=== PATIENT | female | born 2000 | race African-American/Black ===

== ENCOUNTER 2018-06-22 14:33 | Emergency (ER) | payer SELFPAY ==
[2018-06-22] MEDS ORDERED: METHYLPREDNISOLONE INJ 125 MG/2 ML SDV IV ONE (15:01)
[2018-06-22] MEDS ORDERED: MAGNESIUM SULFATE/D5W 1 GM/100 ML RTUPB IV ONE ×2 (15:01→15:02)
[2018-06-22] MEDS ORDERED: IPRATROPIUM/ALBUTEROL 0.5-2.5 MG/3 ML AMPUL NEB ONE ×2 (15:01→19:13)
--- NOTE | 2018-06-22 15:03 | ER Document Report ---
ED Medical Screen (RME) - General Chief Complaint: Shortness Of Breath Stated Complaint: SHORT OF BREATH Time Seen by Provider: 06/22/18 15:01 Primary Care Provider: CHANELLE PHILLIPS MD [Primary Care Provider] - Follow up as needed TRAVEL OUTSIDE OF THE [place] IN LAST 30 DAYS: No - HPI Notes: 06/22/18 15:02 Patient is a 17-year-old female with a history of asthma who presents to the emergency department complaining of nasal congestion/discharge and a dry cough over the past week with wheezing and shortness of breath. Patient states that she has been using her nebulizer at home with minimal relief. She is otherwise able to eat and drink without difficulty. Denies MARIEE, fever, neck pain, URI, CP, n/v/d, or rash. I have treated and performed a rapid initial assessment of this patient. A comprehensive ED assessment and evaluation of the patient, analysis of test results and completion of medical decision making process will be conducted by additional ED providers. PHYSICAL EXAMINATION: GENERAL: Well-appearing, well-nourished and in no acute distress. A&Ox4. Answers questions appropriately. LUNGS: Wheezing bilaterally. No retractions. HEART: Regular rate and rhythm without murmurs, rubs, gallops. - Related Data Allergies/Adverse Reactions: No Known Allergies Allergy (Unverified 06/22/18 14:35) Physical Exam - Vital signs Vitals: Temp Pulse Resp BP Pulse Ox 98.6 F 102 H 20 145/99 H 98 06/22/18 14:41 06/22/18 14:41 06/22/18 14:41 06/22/18 14:41 06/22/18 14:41 Course - Vital Signs Vital signs: Temp Pulse Resp BP Pulse Ox 98.6 F 102 H 20 145/99 H 98 06/22/18 14:41 06/22/18 14:41 06/22/18 14:41 06/22/18 14:41 06/22/18 14:41 Doctor's Discharge - Discharge Referrals: CHANELLE PHILLIPS MD [Primary Care Provider] - Follow up as needed
--- NOTE | 2018-06-22 15:47 | RADIOLOGY REPORT (SQ) ---
EXAM DESCRIPTION: CHEST 2 VIEWS COMPLETED DATE/TIME: 06/22/2018 3:31 pm REASON FOR STUDY: cough/wheeze COMPARISON: None. TECHNIQUE: Frontal and lateral radiographic views of the chest acquired. NUMBER OF VIEWS: Two view. LIMITATIONS: None. FINDINGS: LUNGS AND PLEURA: No opacities, masses or pneumothorax. No pleural effusion. MEDIASTINUM AND HILAR STRUCTURES: No masses or contour abnormalities. HEART AND VASCULAR STRUCTURES: Heart normal size. No evidence for failure. BONES: No acute findings. HARDWARE: None in the chest. OTHER: No other significant finding. IMPRESSION: NO SIGNIFICANT RADIOGRAPHIC FINDING IN THE CHEST. TECHNICAL DOCUMENTATION: JOB ID: [id number] [employer]- All Rights Reserved Reading location - IP/workstation name: [email or web address]
[2018-06-22 16:43] LABS: ALANINE AMINOTRANSFERASE 26 U/L (5-35); ALBUMIN 4.1 g/dL (3.7-5.6); ALKALINE PHOSPHATASE 66 U/L (50-135); ANION GAP 6 (5-19); ASPARTATE AMINO TRANSFERASE 32 U/L (5-30); BILIRUBIN,DIRECT 0.2 mg/dL (0.0-0.4); BILIRUBIN,TOTAL 0.3 mg/dL (0.2-1.3); BLOOD UREA NITROGEN 9 mg/dL (7-20); CALCIUM 9.4 mg/dL (8.4-10.2); CARBON DIOXIDE 31 mmol/L (22-30); CHLORIDE 103 mmol/L (98-107); GLUCOSE 84 mg/dL (75-110); POTASSIUM 4.3 mmol/L (3.6-5.0); SODIUM 139.9 mmol/L (137-145); TOTAL PROTEIN 8.3 g/dL (6.3-8.2)
[2018-06-22 18:20] LABS: VENOUS BLOOD BASE EXCESS 8.7 mmol/L; VENOUS BLOOD HCO3 34.7 mmol/L (20-32); VENOUS BLOOD PCO2 57.1 mmHg (35-63); VENOUS BLOOD PH 7.4 (7.30-7.42)
[2018-06-22 18:21] LABS: HEMATOCRIT 26.8 % (36.0-47.0); MEAN CORPUSCULAR HEMOGLOBIN 15.6 pg (27.0-33.4); MEAN CORPUSCULAR HGB CONC 28.1 g/dL (32.0-36.0); PLATELET COUNT 442 10^3/uL (150-450); RED BLOOD COUNT 4.82 10^6/uL (3.72-5.28); RED CELL DISTRIBUTION WIDTH 21.8 % (11.5-14.0); WHITE BLOOD COUNT 7.1 10^3/uL (4.0-10.5)
[2018-06-22 18:54] LABS: MEAN CORPUSCULAR VOLUME 56 fl (80-97)
[2018-06-22 18:57] LABS: HEMOGLOBIN 7.5 g/dL (12.0-15.5)
[2018-06-22 19:05] LABS: ABSOLUTE MONOCYTES # (MANUAL) 0.1 10^3/uL (0.1-1.4); ABSOLUTE NEUTROPHILS# (MANUAL) 5.7 10^3/uL (1.7-8.2); BASOPHILS % (MANUAL) 0 % (0-2); EOSINOPHILS % (MANUAL) 4 % (0-6); LYMPHOCYTES % (MANUAL) 14 % (13-45); MONOCYTES % (MANUAL) 2 % (3-13); SEGMENTED NEUTROPHILS % (MAN) 80 % (42-78); TOTAL CELLS COUNTED 100
[2018-06-22 19:07] LABS: ANISOCYTOSIS 3+; HYPOCHROMASIA 4+; OVALOCYTES 2+; PLATELET CLUMPS PRESENT; PLATELET COMMENT ADEQUATE; POIKILOCYTOSIS 2+; POLYCHROMASIA SLIGHT; TOXIC GRANULATION SLIGHT; TOXIC VACUOLATION PRESENT
[2018-06-22] MEDS ORDERED: BENZONATATE 100 MG CAPSULE PO ONE (19:14)
[2018-06-22] MEDS ORDERED: CETIRIZINE 10 MG TABLET PO ONE (19:14)
--- NOTE | 2018-06-22 19:14 | ER Document Report ---
ED General - General TRAVEL OUTSIDE OF THE [place] IN LAST 30 DAYS: No <HENRIQUE YUAN - Last Filed: 06/22/18 22:27> <MIKHAIL GALLAGHER - Last Filed: 06/23/18 01:27> - General Chief Complaint: Shortness Of Breath Stated Complaint: SHORT OF BREATH Time Seen by Provider: 06/22/18 15:01 Primary Care Provider: CHANELLE PHILLIPS MD [CONSULTING STAFF] - Follow up as needed Notes: She is a 17-year-old female who presents to the emergency department with the chief complaint of shortness of breath, wheezing, body aches, congestion, sore throat, and chills. She has a history of asthma. She states that she feels she is having her normal asthma attack. She has had her symptoms for the past week. She has not taken any medication to help with her symptoms. (HENRIQUE YUAN) - Related Data Allergies/Adverse Reactions: No Known Allergies Allergy (Unverified 06/22/18 14:35) Past Medical History - Social History Smoking Status: Current Every Day Smoker Chew tobacco use (# tins/day): No Frequency of alcohol use: Social Drug Abuse: None Family History: Reviewed & Not Pertinent Patient has suicidal ideation: No Patient has homicidal ideation: No Pulmonary Medical History: Reports: Hx Asthma Renal/ Medical History: Denies: Hx Peritoneal Dialysis <HENRIQUE YUAN - Last Filed: 06/22/18 22:27> Review of Systems <HENRIQUE YUAN - Last Filed: 06/22/18 22:27> - Review of Systems Notes: REVIEW OF SYSTEMS: CONSTITUTIONAL : See HPI EENT: See HPI CARDIOVASCULAR: Denies chest pain. RESPIRATORY: See HPI GASTROINTESTINAL: Denies nausea, vomiting, and diarrhea. Denies abdominal pain. Denies constipation. GENITOURINARY: Denies difficulty urinating, burning, blood in urine, urgency or frequency. MUSCULOSKELETAL: Denies neck and back pain. Denies joint pain or swelling. SKIN: Denies rash, itchiness, or lesions HEMATOLOGIC : Denies easy bruising or bleeding. LYMPHATIC: Denies swollen, painful, enlarged glands. NEUROLOGICAL: Denies no numbness or tingling denies weakness. Denies headache. Denies altered mental status. Denies alteration in speech. PSYCHIATRIC: Denies stress, anxiety, alteration in sleep patterns, or depression. All other systems reviewed and negative. (HENRIQUE YUAN) Physical Exam <HENRIQUE YUAN - Last Filed: 06/22/18 22:27> - Vital signs Vitals: Temp Pulse Resp BP Pulse Ox 98.6 F 102 H 20 145/99 H 98 06/22/18 14:41 06/22/18 14:41 06/22/18 14:41 06/22/18 14:41 06/22/18 14:41 - Notes Notes: PHYSICAL EXAMINATION: GENERAL: Morbidly obese, no acute distress. HEAD: Normocephalic, atraumatic. EYES: PERRL, conjunctiva normal, all extraocular movements intact, sclera nonicteric ENT: Moist mucous membranes. Erythema and edema noted to nasal mucosa. NECK: Supple, no noticeable swelling, redness, rash. Normal range of motion. LUNGS: Equal breath sounds bilaterally and clear to auscultation. No wheezes rales or rhonchi. CARDIOVASCULAR: S1-S2, regular rate, regular rhythm. Radial pulses 2+, normal. ABDOMEN: Normoactive bowel sounds. Soft, nontender, no guarding, no rebound tenderness, and no masses palpated. EXTREMITIES: Normal strength and range of motion, no pitting or edema. No cyanosis. NEUROLOGICAL: Moves all extremities upon command. Strength 5/5 in all extremities. PSYCH: Normal mood, normal affect. SKIN: Warm, dry. No rash, lesions, ulcerations noted. Normal skin turgor. (HENRIQUE YUAN) Course - Laboratory Result Diagrams: 06/22/18 19:40 06/22/18 16:00 <HENRIQUE YUAN - Last Filed: 06/22/18 22:27> - Laboratory Result Diagrams: 06/22/18 19:40 06/22/18 16:00 <MIKHAIL GALLAGHER - Last Filed: 06/23/18 01:27> - Re-evaluation Re-evalutation: 06/22/18 19:24 She does have CVA tenderness noticed patient's hemoglobin is 7.5 and hematocrit is 26.8. I am worried that this may be an erroneous lab draw. Another CBC will be sent, along with a type and screen. Her blood gas shows is normal. Chemistries show are unremarkable. She will be given Zyrtec and Tessalon Perles to help with her symptoms. She will also receive another DuoNeb treatment. Patient also states that her doctor told her that she was low on iron. She was supposed to take iron medication [id number], but did not. 06/22/18 20:05 Bedside report was given to JOSÉ ANTONIO Fulton. He will take over care for the patient. (HENRIQUE YUAN) 06/23/18 01:00 Patient has completed the blood transfusion. On reevaluation her lungs are clear, she states she actually feels much better after her treatment and transfusion. Patient states that she has frequent and heavy menstrual cycles. This is most likely the cause of her anemia. She is not currently bleeding. Patient does not have any home albuterol or inhalers left, she will be given both along with prednisone. Provided with lab results, discussed follow-up recommendations and return precautions. Patient and family state understanding and agreement. Stable at time of discharge. (MIKHAIL GALLAGHER) - Vital Signs Vital signs: Temp Pulse Resp BP Pulse Ox 98.6 F 102 H 18 118/83 98 06/22/18 23:15 06/22/18 14:41 06/23/18 00:46 06/23/18 00:46 06/23/18 00:46 - Laboratory Laboratory results interpreted by me: 06/22/18 06/22/18 06/22/18 16:00 18:07 18:07 Hgb 7.5 L Hct 26.8 L MCV 56 L MCH 15.6 L MCHC 28.1 L RDW 21.8 H Plt Count Seg Neutrophils % Seg Neuts % (Manual) 80 H Lymphocytes % Monocytes % Monocytes % (Manual) 2 L VBG HCO3 34.7 H Carbon Dioxide 31 H Creatinine 0.41 L AST 32 H Total Protein 8.3 H Crossmatch 06/22/18 06/22/18 19:40 19:40 Hgb 7.6 L Hct 26.6 L MCV 56 L MCH 16.0 L MCHC 28.7 L RDW 21.6 H Plt Count 453 H Seg Neutrophils % 88.7 H Seg Neuts % (Manual) Lymphocytes % 8.9 L Monocytes % 1.8 L Monocytes % (Manual) VBG HCO3 Carbon Dioxide Creatinine AST Total Protein Crossmatch See Detail Discharge <HENRIQUE YUAN - Last Filed: 06/22/18 22:27> <MIKHAIL GALLAGHER - Last Filed: 06/23/18 01:27> - Discharge Clinical Impression: Anemia requiring transfusions Asthma exacerbation Qualifiers: Asthma severity: unspecified severity Asthma persistence: intermittent Qualified Code(s): J45.21 - Mild intermittent asthma with (acute) exacerbation Condition: Stable Disposition: HOME, SELF-CARE Additional Instructions: Use the albuterol inhaler, nebulizer, and prednisone as prescribed. Use the spacer with the inhaler, it is basically useless without it. The inhaler is basically used to this without it. Your transfused blood tonight, follow-up with your provider for additional management including possible iron infusions, control use, etc. Return if you worsen including rapid or labored breathing, passing out, fever, or any other concerning or worsening symptoms. Prescriptions: Albuterol Sulfate [Proair HFA Inhalation Aerosol 8.5 gm MDI] 2 puff IH Q4H PRN #1 mdi PRN Reason: Albuterol Sulfate [Ventolin 0.083% Neb 2.5 mg/3 mL Ampul] 1 vial NEB Q4 #30 vial Prednisone [Deltasone 20 mg Tablet] 3 tab PO DAILY 5 Days #15 tablet Forms: Return to Work Referrals: CHANELLE PHILLIPS MD [CONSULTING STAFF] - Follow up as needed
[2018-06-22 20:00] LABS: ABSOLUTE LYMPHOCYTES (AUTO) 0.8 10^3/uL (0.5-4.7); ABSOLUTE MONOCYTES (AUTO) 0.2 10^3/uL (0.1-1.4); ABSOLUTE NEUT (AUTO) 7.6 10^3/uL (1.7-8.2); BASOPHILS % (AUTO) 0.3 % (0-2); EOSINOPHILS % (AUTO) 0.3 % (0-6); HEMATOCRIT 26.6 % (36.0-47.0); LYMPHOCYTES % (AUTO) 8.9 % (13-45); MEAN CORPUSCULAR HGB CONC 28.7 g/dL (32.0-36.0); MEAN CORPUSCULAR VOLUME 56 fl (80-97); MONOCYTES % (AUTO) 1.8 % (3-13); PLATELET COUNT 453 10^3/uL (150-450); RED BLOOD COUNT 4.76 10^6/uL (3.72-5.28); RED CELL DISTRIBUTION WIDTH 21.6 % (11.5-14.0); SEGMENTED NEUTROPHILS % (AUTO) 88.7 % (42-78); TOTAL CELLS COUNTED % (AUTO) 100 %; WHITE BLOOD COUNT 8.6 10^3/uL (4.0-10.5)
[2018-06-22 20:18] LABS: HEMOGLOBIN 7.6 g/dL (12.0-15.5)
[2018-06-22 20:27] LABS: ANISOCYTOSIS 3+; HYPOCHROMASIA 2+; OVALOCYTES 2+; PLATELET COMMENT ADEQUATE; POIKILOCYTOSIS 3+; TARGET CELLS SLIGHT; TOXIC GRANULATION SLIGHT; TOXIC VACUOLATION PRESENT
[2018-06-22] MEDS ORDERED: NORMAL SALINE 250 ML IV PRN ×2 (20:38)
[2018-06-23] MEDS ORDERED: ALBUTEROL SULFATE HFA (90 MCG/PUFF) 8 GM MDI (1 MDI/ER DISP) IH ONE (01:18)
[2018-06-23 01:41] VITALS: BP 144/99
== END 2018-06-23 01:42 | disposition home or self-care (01) ==
LOC: ER 14:33
DX: J45.21 Mild intermittent asthma with (acute) exacerbation (principal); D64.9 Anemia, unspecified; R06.02 Shortness of breath; M79.10 Myalgia, unspecified site; R09.81 Nasal congestion; J02.9 Acute pharyngitis, unspecified; F17.200 Nicotine dependence, unspecified, uncomplicated
CPT/HCPCS: 94640 ×2; 99285; 96375; 96365; 96366; 86900; 86901; 36415; 36430; 86850; 85025; 80053; 86920; 82803; 71046; P9016; J2930; J3475; J3490; J7620

== ENCOUNTER 2019-02-08 23:58 | Emergency (ER) | payer SELFPAY ==
[2019-02-09] MEDS ORDERED: IPRATROPIUM/ALBUTEROL 0.5-2.5 MG/3 ML AMPUL NEB ONE ×2 (00:04→03:52)
[2019-02-09] MEDS: ALBUTEROL SULFATE 0.083% NEB 2.5 MG/3 ML AMPUL NEB SCH ×2 (00:16→04:04)
[2019-02-09] MEDS ORDERED: PREDNISONE 20 MG TABLET PO ONE (03:52)
--- NOTE | 2019-02-09 04:20 | ER Document Report ---
ED General - General Chief Complaint: Shortness Of Breath Stated Complaint: SHORTNESS OF BREATH Time Seen by Provider: 02/09/19 03:34 Primary Care Provider: ENRIQUETA WADSWORTH FNP [Primary Care Provider] - Follow up as needed TRAVEL OUTSIDE OF THE [place] IN LAST 30 DAYS: No - HPI Notes: Patient is a morbidly obese 18-year-old female with a history of asthma who presents emergency department for evaluation of shortness of breath. She states that she ran out of her albuterol inhaler on Tuesday. She became short of breath on Tuesday. She has been using her nebulizer at home, which is been helping somewhat. She denies any fevers or chills. No nausea or vomiting. She has no chest pain. She states she has had some upper respiratory type symptoms, including nasal congestion, postnasal drainage, sore throat. She had not been hospitalist for her asthma since she was a child according to mother. She is feeling somewhat improved here after breathing treatment. - Related Data Allergies/Adverse Reactions: No Known Allergies Allergy (Unverified 02/09/19 00:00) Home Medications: Out of meds Past Medical History - General Information source: Patient, Parent - Social History Smoking Status: Never Smoker Family History: Reviewed & Not Pertinent Patient has suicidal ideation: No Patient has homicidal ideation: No Pulmonary Medical History: Reports: Hx Asthma Renal/ Medical History: Denies: Hx Peritoneal Dialysis Review of Systems - Review of Systems Constitutional: No symptoms reported EENT: See HPI Cardiovascular: No symptoms reported Respiratory: See HPI Gastrointestinal: No symptoms reported Genitourinary: No symptoms reported Female Genitourinary: No symptoms reported Skin: No symptoms reported Neurological/Psychological: No symptoms reported Physical Exam - Vital signs Vitals: Temp Pulse Resp BP Pulse Ox 98.2 F 110 H 28 H 151/99 H 95 02/09/19 00:04 02/09/19 00:04 02/09/19 00:04 02/09/19 00:04 02/09/19 00:04 - Notes Notes: Is a morbidly obese 18-year-old female who appears her stated age, no acute distress. Vital signs reviewed, please refer to chart. Head is normocephalic, atraumatic. Pupils equal round, reactive to light. Neck is supple without meningismus. Heart is regular rate and rhythm. Lungs reveal diminished breath sounds, but it is difficult to tell as to whether or not this is from diminished air movement or body habitus. Abdomen is soft, nontender, normoactive bowel sounds throughout. Extremities without cyanosis, clubbing. Posterior calves are nontender. Peripheral pulses are equal. Skin is warm and dry. Patient is awake, alert, neurological exam is nonfocal. Course - Re-evaluation Re-evalutation: 02/09/19 04:19 Patient presents emergency department for evaluation. She had DuoNeb is ordered through protocol and felt improved. She is requesting another. I did go ahead and order this, but she is currently 99 200% on room air. She is a normal respiratory rate. She has no signs of focal consolidation, no fever. I did give her prednisone 60 mill grams p.o. I will send her home with a prednisone taper and a prescription for another albuterol inhaler. She is to follow-up with her primary care provider next week, return to the ED with worsening or new concerning symptoms of any sort. - Vital Signs Vital signs: Temp Pulse Resp BP Pulse Ox 98.2 F 110 H 28 H 151/99 H 95 02/09/19 00:04 02/09/19 00:04 02/09/19 00:04 02/09/19 00:04 02/09/19 00:04 Discharge - Discharge Clinical Impression: Acute asthma exacerbation Qualifiers: Asthma severity: mild Asthma persistence: unspecified Qualified Code(s): J45.901 - Unspecified asthma with (acute) exacerbation Condition: Stable Disposition: HOME, SELF-CARE Instructions: Ast[facility] ([facility]) Additional Instructions: Take prednisone as directed, use inhaler as needed for shortness of breath. Continue your nebulizer treatments at home. Follow-up with your doctor next week. Return the emergency department with worsening or new concerning symptoms of any sort. Referrals: ENRIQUETA WADSWORTH FNP [Primary Care Provider] - Follow up as needed
[2019-02-09 04:46] VITALS: BP 148/89
--- NOTE | 2019-02-09 12:04 | EKG REPORT ---
SEVERITY:- OTHERWISE NORMAL ECG - SINUS TACHYCARDIA : Confirmed by: Luzma Dinh 09-Feb-2019 12:03:55
--- NOTE | 2019-02-11 23:33 | EKG REPORT ---
SEVERITY:- OTHERWISE NORMAL ECG - SINUS TACHYCARDIA : Confirmed by: Luzma Dinh 11-Feb-2019 23:32:36
== END 2019-02-09 04:44 | disposition home or self-care (01) ==
LOC: ER 23:58
DX: J45.901 Unspecified asthma with (acute) exacerbation (principal); R06.02 Shortness of breath; R09.81 Nasal congestion; R09.89 Other specified symptoms and signs involving the circulatory and respiratory systems; J02.9 Acute pharyngitis, unspecified
CPT/HCPCS: 93005; 94640 ×2; 99284; 93010; J7512; J7620

== ENCOUNTER 2019-11-06 21:54 | Emergency (ER) | payer SELFPAY ==
[2019-11-06] MEDS ORDERED: TRAMADOL HCL 50 MG TABLET PO ONE (22:35)
[2019-11-06] MEDS ORDERED: PENICILLIN V POTASSIUM 500 MG TABLET PO ONE (22:35)
--- NOTE | 2019-11-06 22:41 | ER Document Report ---
ED General - General Chief Complaint: Headache Stated Complaint: HEADACHE/RIGHT SIDE FACE PAIN/EAR/NECK Primary Care Provider: ENRIQUETA WADSWORTH FNP [Primary Care Provider] - Follow up as needed Notes: Patient is a 19-year-old -[place] female with past medical history of asthma who presents to the emergency department the chief complaint of headache that began a few days ago. She states she felt there was some involvement of the right lower posterior most molar, her family member brought her some Orajel but then she states she felt like the tooth was no longer hurting. She describes the pain as being located around the right ear and right parietal side of the head. She denies any specific provocative or palliative factors. She does state that sometimes noise seems to worsen the headache. Denies any photophobia. Denies a history of headache disorders. Denies any head injury or trauma. Denies any fever or visual disturbances. No tongue or throat swelling. Admits that she has had a filling done in that same molar in the past. She has a dentist. TRAVEL OUTSIDE OF THE [place] IN LAST 30 DAYS: No - Related Data Allergies/Adverse Reactions: No Known Allergies Allergy (Verified 11/06/19 22:29) Past Medical History - Social History Smoking Status: Unknown if Ever Smoked Family History: Reviewed & Not Pertinent Pulmonary Medical History: Reports: Hx Asthma Renal/ Medical History: Denies: Hx Peritoneal Dialysis Review of Systems - Review of Systems Constitutional: denies: Fever EENT: Dental problem Cardiovascular: denies: Chest pain Respiratory: denies: Short of breath Gastrointestinal: denies: Vomiting Genitourinary: denies: Pain Female Genitourinary: denies: Vaginal discharge Musculoskeletal: denies: Deformity Skin: denies: Lesions Hematologic/Lymphatic: denies: Easy bruising Neurological/Psychological: Headaches Physical Exam - Vital signs Vitals: Temp Pulse Resp BP Pulse Ox 98.9 F 102 H 18 152/96 H 100 11/06/19 22:05 11/06/19 22:05 11/06/19 22:05 11/06/19 22:05 11/06/19 22:05 - General General appearance: Appears well, Alert In distress: None - HEENT Head: Normocephalic, Atraumatic Eyes: Normal Conjunctiva: Normal Extraocular movements intact: Yes Eyelashes: Normal Pupils: PERRL Ears: Normal External canal: Normal Tympanic membrane: Normal Mouth/Lips: Normal Mucous membranes: Normal Teeth diagram: 1 - Tenderness to percussion. Obvious dental filling defect with cracks. No purulent drainage or abscess formation visible. Pharynx: Normal Neck: Normal, Supple - Respiratory Respiratory status: No respiratory distress Chest status: Nontender Breath sounds: Normal Chest palpation: Normal - Cardiovascular Rhythm: Regular Heart sounds: Normal auscultation - Neurological Neuro grossly intact: Yes Cognition: Normal Orientation: AAOx4 Scott Coma Scale Eye Opening: Spontaneous [place] Coma Scale Verbal: Oriented [place] Coma Scale Motor: Obeys Commands Scott Coma Scale Total: 15 Speech: Normal Cranial nerves: Normal Cerebellar coordination: Normal Additional motor exam normals: Equal dragsaw operator Sensory: Normal - Psychological Associated symptoms: Normal affect, Normal mood - Skin Skin Temperature: Warm Skin Moisture: Dry Skin Color: Normal Course - Re-evaluation Re-evalutation: 11/06/19 22:42 History and physical consistent with a right-sided headache referred from the right lower posterior most molar. Obvious crack in the previous filling that was placed. Patient has a dentist. She will call tomorrow for follow-up. She will be placed on Pen-Vee K given a short course of tramadol for the time being. Counseled her regarding supportive care measures and advised that she return here or any ER immediately with any new, persistent or worsening symptoms. She verbalized understood and agreed. - Vital Signs Vital signs: Temp Pulse Resp BP Pulse Ox 98.9 F 102 H 18 152/96 H 100 11/06/19 22:05 11/06/19 22:05 11/06/19 22:05 11/06/19 22:05 11/06/19 22:05 Discharge - Discharge Clinical Impression: Dental abscess, Dentalgia Cephalgia Qualifiers: Headache type: unspecified Headache chronicity pattern: unspecified pattern Intractability: not intractable Qualified Code(s): R51 - Headache Condition: Stable Disposition: HOME, SELF-CARE Instructions: Penicillin V K ([facility]), Oral Narcotic Medication ([facility]), Toothache ( [facility]) Additional Instructions: Please follow-up with your dentist as soon as possible for reevaluation of your tooth. Return here or any ER immediately with any new, persistent or worsening symptoms. Prescriptions: Tramadol HCl [Ultram 50 mg Tablet] 50 mg PO Q6HP PRN #12 tablet PRN Reason: Penicillin V Potassium [Penicillin Vk 500 mg Tablet] 500 mg PO QID #39 tablet Referrals: ENRIQUETA WADSWORTH OFF TR[employer] BETTING MANAGER [Primary Care Provider] - Follow up as needed
[2019-11-07 02:25] VITALS: BP 148/90
== END 2019-11-06 22:41 | disposition home or self-care (01) ==
LOC: ER 21:54
DX: K04.7 Periapical abscess without sinus (principal); K08.89 Other specified disorders of teeth and supporting structures; R51 Headache; J45.909 Unspecified asthma, uncomplicated
CPT/HCPCS: 99283